=== PATIENT | male | born 1970 | race Caucasian/White ===

== ENCOUNTER 2016-02-23 15:46 | Emergency (ER) | payer SELFPAY ==
--- NOTE | 2016-02-23 16:40 | DIAGNOSTIC IMAGING REPORT ---
PROCEDURE: XR RIBS UNILAT W/PA CHEST-RT INDICATION: TRAUMA/INJURY TECHNIQUE: Two views of the right ribs with single PA view chest. COMPARISON: None. FINDINGS: RIGHT RIBS: Fracture of the right seventh rib posteriorly No other suspicious rib lesions. CHEST: Normal cardiomediastinal contour. Clear lungs without pleural effusion, pneumothorax, or contusion. The other visible osseous structures are intact. IMPRESSION: 1. Fracture of the right seventh rib posteriorly 2. Chest otherwise normal
--- NOTE | 2016-02-23 17:42 | ED NURSING NOTES ---
Clinical Report - Nurses [facility] [address] [place] [address] 02/23/2016 15:47 [id number] Triage time 16:03 Feb 23 2016. Acuity: LEVEL 4. Chief Complaint: (Right Rib Pain). Alert. No acute distress. MITZY COMA SCORE: [place] Coma Scale: 15- eyes open spontaneously (4); best verbal response- oriented x 4 (5); best motor response- obeys commands (6). --16:14 Jia Trujillo R.N. 16:03 02/23/16. BP: 188/128. HR: 92. RR: 18. O2 saturation: 98%. --16:14 Jia Trujillo R.N. Weight: 108.8 kg stated. Height/Length: 72 inches Per Patient. BMI: 32.6. --16:02 Jia Trujillo R.N. Medications Ibuprofen Oral, as needed. --16:10 Jia Trujillo R.N. Medication/allergy information source: the patient. --16:14 Jia Trujillo R.N. Allergies No Known Drug Allergy. --16:08 Jia Trujillo R.N. History Arrived by private vehicle. Historian: patient. Accompanied by family. Primary physician (none). ( Pt states about a month ago he had coughing episode and felt something "pop" on his right side of rib cage area. Had some pain, concerned and went to [facility] / for a work up. Pt states all xrays were normal but felt his concern was dismissed and still having pain and tightness now in chest, off to the right side. "Dull Ache".). Onset. (1 month ago). 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 PAST MEDICAL HX: Immunizations: up-to-date. SURGERY HX: No history of previous surgery. SOCIAL HX: Heavy tobacco smoker (cigarette)- 1 pack per day. Occasional alcohol use. FALL RISK ASSESSMENT: Fall risk assessment completed. No fall risk identified. NUTRITIONAL RISK ASSESSMENT: The nutritional risk assessment revealed no deficiencies. FUNCTIONAL ASSESSMENT: Functional assessment: no impairments noted. LEARNING NEEDS ASSESSMENT: The learning needs assessment revealed no barriers. SKIN INTEGRITY ASSESSMENT: Skin integrity risk assessment completed. No skin integrity risk identified. --16:14 Jia Trujillo R.N. Interventions ID band on patient. To room. --16:14 Jia Trujillo R.N. PHYSICAL ASSESSMENT Ambulatory to room. GENERAL / NEURO / PSYCH: Appears in no acute distress. RESPIRATORY: Respirations not labored. Chest nontender. Breath sounds within normal limits. CVS: Capillary refill less than 2 seconds. SKIN: Skin is warm and dry. --16:15 Jia Trujillo R.N. NURSING PROGRESS NOTES ( seen in traige by the PA.). --16:15 Jia Trujillo R.N. Patient walked to radiology with tech. --16:15 Jia Trujillo R.N. Care transferred and report given (Adams, RN). --16:15 Jia Trujillo R.N. EKG time: (1636). EKG was ordered, performed by a tech and shown to the ED physician. --16:38 Doris Senior, ER Tech1. DISPOSITION / DISCHARGE Condition at departure: improved. The goals identified in the patient's plan of care were met. No learning barriers present. Reviewed medication(s) side effects, precautions, dosing and course information. The patient was discharged home and accompanied by spouse. He left the Emergency Department ambulatory and via private vehicle. Spouse driving. FALL RISK ASSESSMENT: Fall risk assessment completed. No fall risk identified. --17:49 Adams Sanchez R.N. 17:48 02/23/16. BP: 175/106. HR: 88. RR: 16. O2 saturation: 99%. Temp: 98.1 F (oral). Pain level now: 0/10. --17:49 Adams Sanchez R.N. Locked/Released at 02/23/2016 17:54 by Adams Sanchez R.N.
--- NOTE | 2016-02-23 17:42 | ED CLINICAL REPORT ---
Clinical Report - Physicians/Mid Levels [facility] [address] [address] 02/23/2016 15:47 [id number] Time Seen: 16:16 Feb 23 2016. Arrived- By private vehicle. Historian- patient. HISTORY OF PRESENT ILLNESS Chief Complaint: CHEST DISCOMFORT. 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 It is described as "pain" and well localized and it is described as located in the right chest area. (over the last month patient reports right-sided chest pain, worse with any movement, or breathing. Patient reports he was previously seen around February 16 at [facility], had a chest x-ray, and an injection, as well as some pain medications, however he did not feel his workup was complete, and thus her here. Patient does not have a primary care doctor. Denies any shortness of breath. Pain is really low at this time. He has had dry cough.). REVIEW OF SYSTEMS No cough, pedal edema, missed periods or abdominal pain. All systems otherwise negative, except as recorded above. SOCIAL HISTORY Smoker- current status unknown. Alcohol use. ADDITIONAL NOTES The nursing notes have been reviewed. PHYSICAL EXAM Vital Signs: 02/23/2016 16:03 BP: 188/128. HR: 92. RR: 18. O2 saturation: 98%. Appearance: Alert. ENT: Nose normal. Pharynx normal. Neck: Normal inspection. CVS: Normal heart rate and rhythm. Heart sounds normal. Pulses normal. Respiratory: No respiratory distress. Chest pain reproducible with palpation of the posterior chest wall and lateral ribs and with movement of the trunk and right arm. Breath sounds normal. No splinting. Abdomen: Soft and nontender. Bowel sounds normal. No abdominal tenderness. Skin: Skin warm. Normal skin color. Neuro: Oriented X 3. LABS, X-RAYS, AND EKG EKG: EKG time: (8116). No acute process. No acute ischemia. Rate: 86. Normal P waves. Normal TAMI. Incomplete RBBB. The study has been interpreted contemporaneously. The study has been independently viewed by me. The EKG appears to be a good tracing. Chest X-ray: (IMPRESSION: 1. Fracture of the right seventh rib posteriorly 2. Chest otherwise normal Electronically Final signed by:Jae Arceo MD 02/23/2016 4:43:51 PM). Laboratory Tests: CBC w Diff: (GENIA: 02/23/2016 17:07) ( MsgRcvd 02/23/2016 17:19) Final results Test Result Flag Units (Reference) WHITE BLOOD COUNT 9.9 K/uL (4.5-11.5) RED BLOOD COUNT 5.07 M/uL (4.50-5.90) HEMOGLOBIN 15.9 gm/dL (13.5-17.5) HEMATOCRIT 48.0 % (41.0-53.0) MEAN CELL VOLUME 95 fL (80-100) MEAN CORPUSCULAR HGB 31 pg (26-34) MEAN CORPUSCULAR HGB CONC 33 g/dL (31-37) RED CELL DISTRIBUTION WIDTH 13.1 % (11.6-14.8) PLATELET COUNT 321 K/uL (150-400) NEUTROPHIL % 57.8 % (50-75) LYMPH % 28.2 % (25-40) MONO % 8.5 % (3-14) EOSINOPHIL % 4.9 H % (0-4) BASOPHIL % 0.6 % (0-2) CHEM 13 PANEL: (GENIA: 02/23/2016 17:07) ( MsgRcvd 02/23/2016 17:40) Final results Test Result Flag Units (Reference) GLUCOSE 123 H mg/dL (70-110) BUN 11 mg/dL (7-18) CREATININE 0.9 mg/dL (0.6-1.3) Estimated GFR >60 mL/min Estimated GFR- >60 mL/min Note: Persistent reduction over 3 months in eGFR<60 mL/min/1.73 m2 defines CKD. Patients with eGFR values>=60 mL/min/1.73 m2 may also have CKD if evidence ofpersistent proteinuria. Additional information may be foundat www.kidney.org. SODIUM 139 mmol/L (136-145) POTASSIUM 4.2 mmol/L (3.5-5.1) CHLORIDE 104 mmol/L (98-107) CARBON DIOXIDE 31 mmol/L (21-32) CALCIUM 9.1 mg/dL (8.5-10.1) TOTAL PROTEIN 7.3 g/dL (6.4-8.2) ALBUMIN 3.6 g/dL (3.3-5.0) BILIRUBIN, TOTAL 0.3 mg/dL (0.0-1.0) ALKALINE PHOSPHATASE 86 U/L (46-116) AST (SGOT) 24 U/L (15-37) ALT (SGPT) 62 U/L (12-78) MAGNESIUM 1.9 mg/dL (1.8-2.4) CPK 230 U/L (24-260) TROPONIN I <0.05 ng/mL (0.00-1.5) TROPONIN REFERENCE RANGE:<0.1 NEGATIVE0.1-1.5 INDETERMINANT>1.5 POSITIVE . PROGRESS AND PROCEDURES Course of Care: ongoing symptoms for 1 month, pain associated with movement, movement of his extremities, with an associated underlying seventh right posterior rib fracture. Patient otherwise with unremarkable EKG, chest x-ray, otherwise stable, no underlying secondary infection process. Unable to urinate here, thus no UA in the meantime. 02/23/2016 17:48 BP: 175/106. HR: 88. RR: 16. O2 saturation: 99%. Temp: 98.1 F. Pain level now: 0/10. Patient is stable. Symptoms better. Patient/family counseled. Disposition: Discharged. CLINICAL IMPRESSION Single right rib fracture. Hypertension. INSTRUCTIONS Warnings: GENERAL WARNINGS: Return or contact your physician immediately if your condition worsens or changes unexpectedly, if not improving as expected, or if other problems arise. Prescription Medications: Ibuprofen 800 mg tablets: take 1 tablet orally every 8 hours for 5 days, as needed for pain. Dispense fifteen (15). No refill. Follow-up: Follow up with your doctor in three days. Follow-up with: Juan Berry MD, [facility], , [facility], [address] [place] [address] Follow up. Call for the next available appointment. (Electronically signed by Amy Aguirre P.A.-C 02/23/2016 17:56)
--- NOTE | 2016-02-23 17:42 | ED NURSING NOTES ---
Clinical Report - Nurses [facility] [address] [place] [address] 02/23/2016 15:47 [id number] TRI[facility] Triage time 16:03 Feb 23 2016. Acuity: LEVEL 4. Chief Complaint: (Right Rib Pain). Alert. No acute distress. MITZY COMA SCORE: [place] Coma Scale: 15- eyes open spontaneously (4); best verbal response- oriented x 4 (5); best motor response- obeys commands (6). --16:14 Jia Trujillo R.N. 16:03 02/23/16. BP: 188/128. HR: 92. RR: 18. O2 saturation: 98%. --16:14 Jia Trujillo R.N. Weight: 108.8 kg stated. Height/Length: 72 inches Per Patient. BMI: 32.6. --16:02 Jia Trujillo R.N. Medications Ibuprofen Oral, as needed. --16:10 Jia Trujillo R.N. Medication/allergy information source: the patient. --16:14 Jia Trujillo R.N. Allergies No Known Drug Allergy. --16:08 Jia Trujillo R.N. History Arrived by private vehicle. Historian: patient. Accompanied by family. Primary physician (none). ( Pt states about a month ago he had coughing episode and felt something "pop" on his right side of rib cage area. Had some pain, concerned and went to [facility] ER / for a work up. Pt states all xrays were normal but felt his concern was dismissed and still having pain and tightness now in chest, off to the right side. "Dull Ache".). Onset. (1 month ago). 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 PAST MEDICAL HX: Immunizations: up-to-date. SURGERY HX: No history of previous surgery. SOCIAL HX: Heavy tobacco smoker (cigarette)- 1 pack per day. Occasional alcohol use. FALL RISK ASSESSMENT: Fall risk assessment completed. No fall risk identified. NUTRITIONAL RISK ASSESSMENT: The nutritional risk assessment revealed no deficiencies. FUNCTIONAL ASSESSMENT: Functional assessment: no impairments noted. LEARNING NEEDS ASSESSMENT: The learning needs assessment revealed no barriers. SKIN INTEGRITY ASSESSMENT: Skin integrity risk assessment completed. No skin integrity risk identified. --16:14 Jia Trujillo R.N. Interventions ID band on patient. To room. --16:14 Jia Trujillo R.N. PHYSICAL ASSESSMENT Ambulatory to room. GENERAL / NEURO / PSYCH: Appears in no acute distress. RESPIRATORY: Respirations not labored. Chest nontender. Breath sounds within normal limits. CVS: Capillary refill less than 2 seconds. SKIN: Skin is warm and dry. --16:15 Jia Trujillo R.N. NURSING PROGRESS NOTES ( seen in traige by the PA.). --16:15 Jia Trujillo R.N. Patient walked to radiology with tech. --16:15 Jia Trujillo R.N. Care transferred and report given (Adams, RN). --16:15 Jia Trujillo R.N. EKG time: (1636). EKG was ordered, performed by a tech and shown to the ED physician. --16:38 Doris Senior, ER Tech1. DISPOSITION / DISCHARGE Condition at departure: improved. The goals identified in the patient's plan of care were met. No learning barriers present. Reviewed medication(s) side effects, precautions, dosing and course information. The patient was discharged home and accompanied by spouse. He left the Emergency Department ambulatory and via private vehicle. Spouse driving. FALL RISK ASSESSMENT: Fall risk assessment completed. No fall risk identified. --17:49 Adams Sanchez R.N. 17:48 02/23/16. BP: 175/106. HR: 88. RR: 16. O2 saturation: 99%. Temp: 98.1 F (oral). Pain level now: 0/10. --17:49 Adams Sanchez R.N. Locked/Released at 02/23/2016 17:54 by Adams Sanchez R.N.
--- NOTE | 2016-02-23 17:42 | ED CLINICAL REPORT ---
Clinical Report - Physicians/Mid Levels [facility] [address] [place] [address] 02/23/2016 15:47 [id number] Time Seen: 16:16 Feb 23 2016. Arrived- By private vehicle. Historian- patient. HISTORY OF PRESENT ILLNESS Chief Complaint: CHEST DISCOMFORT. 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 It is described as "pain" and well localized and it is described as located in the right chest area. (over the last month patient reports right-sided chest pain, worse with any movement, or breathing. Patient reports he was previously seen around February 16 at [facility], had a chest x-ray, and an injection, as well as some pain medications, however he did not feel his workup was complete, and thus her here. Patient does not have a primary care doctor. Denies any shortness of breath. Pain is really low at this time. He has had dry cough.). REVIEW OF SYSTEMS No cough, pedal edema, missed periods or abdominal pain. All systems otherwise negative, except as recorded above. SOCIAL HISTORY Smoker- current status unknown. Alcohol use. ADDITIONAL NOTES The nursing notes have been reviewed. PHYSICAL EXAM Vital Signs: 02/23/2016 16:03 BP: 188/128. HR: 92. RR: 18. O2 saturation: 98%. Appearance: Alert. ENT: Nose normal. Pharynx normal. Neck: Normal inspection. CVS: Normal heart rate and rhythm. Heart sounds normal. Pulses normal. Respiratory: No respiratory distress. Chest pain reproducible with palpation of the posterior chest wall and lateral ribs and with movement of the trunk and right arm. Breath sounds normal. No splinting. Abdomen: Soft and nontender. Bowel sounds normal. No abdominal tenderness. Skin: Skin warm. Normal skin color. Neuro: Oriented X 3. LABS, X-RAYS, AND EKG EKG: EKG time: (4766). No acute process. No acute ischemia. Rate: 86. Normal P waves. Normal TAMI. Incomplete RBBB. The study has been interpreted contemporaneously. The study has been independently viewed by me. The EKG appears to be a good tracing. Chest X-ray: (IMPRESSION: 1. Fracture of the right seventh rib posteriorly 2. Chest otherwise normal Electronically Final signed by:Jae Arceo MD 02/23/2016 4:43:51 PM). Laboratory Tests: CBC w Diff: (GENIA: 02/23/2016 17:07) ( MsgRcvd 02/23/2016 17:19) Final results Test Result Flag Units (Reference) WHITE BLOOD COUNT 9.9 K/uL (4.5-11.5) RED BLOOD COUNT 5.07 M/uL (4.50-5.90) HEMOGLOBIN 15.9 gm/dL (13.5-17.5) HEMATOCRIT 48.0 % (41.0-53.0) MEAN CELL VOLUME 95 fL (80-100) MEAN CORPUSCULAR HGB 31 pg (26-34) MEAN CORPUSCULAR HGB CONC 33 g/dL (31-37) RED CELL DISTRIBUTION WIDTH 13.1 % (11.6-14.8) PLATELET COUNT 321 K/uL (150-400) NEUTROPHIL % 57.8 % (50-75) LYMPH % 28.2 % (25-40) MONO % 8.5 % (3-14) EOSINOPHIL % 4.9 H % (0-4) BASOPHIL % 0.6 % (0-2) CHEM 13 PANEL: (GENIA: 02/23/2016 17:07) ( MsgRcvd 02/23/2016 17:40) Final results Test Result Flag Units (Reference) GLUCOSE 123 H mg/dL (70-110) BUN 11 mg/dL (7-18) CREATININE 0.9 mg/dL (0.6-1.3) Estimated GFR >60 mL/min Estimated GFR- >60 mL/min Note: Persistent reduction over 3 months in eGFR<60 mL/min/1.73 m2 defines CKD. Patients with eGFR values>=60 mL/min/1.73 m2 may also have CKD if evidence ofpersistent proteinuria. Additional information may be foundat www.kidney.org. SODIUM 139 mmol/L (136-145) POTASSIUM 4.2 mmol/L (3.5-5.1) CHLORIDE 104 mmol/L (98-107) CARBON DIOXIDE 31 mmol/L (21-32) CALCIUM 9.1 mg/dL (8.5-10.1) TOTAL PROTEIN 7.3 g/dL (6.4-8.2) ALBUMIN 3.6 g/dL (3.3-5.0) BILIRUBIN, TOTAL 0.3 mg/dL (0.0-1.0) ALKALINE PHOSPHATASE 86 U/L (46-116) AST (SGOT) 24 U/L (15-37) ALT (SGPT) 62 U/L (12-78) MAGNESIUM 1.9 mg/dL (1.8-2.4) CPK 230 U/L (24-260) TROPONIN I <0.05 ng/mL (0.00-1.5) TROPONIN REFERENCE RANGE:<0.1 NEGATIVE0.1-1.5 INDETERMINANT>1.5 POSITIVE . PROGRESS AND PROCEDURES Course of Care: ongoing symptoms for 1 month, pain associated with movement, movement of his extremities, with an associated underlying seventh right posterior rib fracture. Patient otherwise with unremarkable EKG, chest x-ray, otherwise stable, no underlying secondary infection process. Unable to urinate here, thus no UA in the meantime. 02/23/2016 17:48 BP: 175/106. HR: 88. RR: 16. O2 saturation: 99%. Temp: 98.1 F. Pain level now: 0/10. Patient is stable. Symptoms better. Patient/family counseled. Disposition: Discharged. CLINICAL IMPRESSION Single right rib fracture. Hypertension. INSTRUCTIONS Warnings: GENERAL WARNINGS: Return or contact your physician immediately if your condition worsens or changes unexpectedly, if not improving as expected, or if other problems arise. Prescription Medications: Ibuprofen 800 mg tablets: take 1 tablet orally every 8 hours for 5 days, as needed for pain. Dispense fifteen (15). No refill. Follow-up: Follow up with your doctor in three days. Follow-up with: Juan Berry MD, [facility], , [facility], [address] [place] [address] Follow up. Call for the next available appointment. (Electronically signed by Amy Aguirre P.A.-C 02/23/2016 17:56)
--- NOTE | 2016-02-23 17:42 | ED ORDER SUMMARY ---
..... Patient: NISREEN BECKHAM OrderSheet [facility] VisitID: [id number] [place] [address] 45y, M Registration Date/Time: 02/23/2016 ORDER SHEET Weight: 108.8 kg (stated) Allergies: No Known Drug Allergy GENERAL ORDERS: Ribs Unilat w PA Chest Right Urgent (16:10 02/23/2016 EKoroleva P.A.-C) (Ack 16:17 NHouse ER Tech1) (17:25 MCampbell) Cardiac Panel Stat (16:11 02/23/2016 EKoroleva P.A.-C) (Ack 16:17 NHouse ER Tech1) (17:13 NHouse ER Tech1) EKG - ER Stat (16:11 02/23/2016 EKoroleva P.A.-C) (16:31 LNations ER Tech1) UA-Culture if indicated Urgent (16:26 02/23/2016 EKoroleva P.A.-C) (Ack 17:08 NHouse ER Tech1) (17:54 Nuris Mg) MEDICATION ORDERS: IV FLUIDS: ORDER SHEET NOTES: [Electronically signed by Adams Sanchez R.N. (17:54 02/23/2016)] [Electronically signed by Amy Aguirre P.A.-C (17:56 02/23/2016)] [Electronically locked/signed by Adams Sanchez R.N. (17:54 02/23/2016)]
--- NOTE | 2016-02-23 17:42 | ED ORDER SUMMARY ---
..... Patient: NISREEN BECKHAM OrderSheet [facility] VisitID: [id number] [place] [address] 45y, M Registration Date/Time: 02/23/2016 ORDER SHEET Weight: 108.8 kg (stated) Allergies: No Known Drug Allergy GENERAL ORDERS: Ribs Unilat w PA Chest Right Urgent (16:10 02/23/2016 EKoroleva P.A.-C) (Ack 16:17 NHouse ER Tech1) (17:25 MCampbell) Cardiac Panel Stat (16:11 02/23/2016 EKoroleva P.A.-C) (Ack 16:17 NHouse ER Tech1) (17:13 NHouse ER Tech1) EKG - ER Stat (16:11 02/23/2016 EKoroleva P.A.-C) (16:31 LNations ER Tech1) UA-Culture if indicated Urgent (16:26 02/23/2016 EKoroleva P.A.-C) (Ack 17:08 NHouse ER Tech1) (17:54 Nuris Mg) MEDICATION ORDERS: IV FLUIDS: ORDER SHEET NOTES: [Electronically signed by Adams Sanchez R.N. (17:54 02/23/2016)] [Electronically signed by Amy Aguirre P.A.-C (17:56 02/23/2016)] [Electronically locked/signed by Adams Sanchez R.N. (17:54 02/23/2016)]
--- NOTE | 2016-02-23 17:56 | ED DISCHARGE INSTRUCTIONS ---
Patient: NISREEN BECKHAM General Instructions [facility] VisitID: [id number] [place] [address] 45y, M Registration Date/Time: 02/23/2016 Single right rib fracture. Hypertension. INSTRUCTIONS Warnings: GENERAL WARNINGS: Return or contact your physician immediately if your condition worsens or changes unexpectedly, if not improving as expected, or if other problems arise. Prescription Medications: Ibuprofen 800 mg tablets: take 1 tablet orally every 8 hours for 5 days, as needed for pain. Dispense fifteen (15). No refill. Follow-up: Follow up with your doctor in three days. Follow-up with: Juan Berry MD, [facility], , [facility], [address] [place] [address] Follow up. Call for the next available appointment. ADDITIONAL INFORMATION Rib Fracture You have a fracture (break) of one or more ribs. Rib fractures do not require a cast like other bones. They will heal by themselves in about 4-6 weeks. The first 3-4 weeks will be the most painful because deep breathing, coughing or changing position from sitting to lying down, may cause the broken ends to move slightly. Home Care: Rest. You should not be doing any heavy lifting or strenuous exertion until the pain goes away. Because it hurts to breathe when you have a broken rib, there is risk of getting pneumonia from poor airflow through your lungs. To prevent this: Take four very deep breaths at least four times a day (exhale through pursed lips as if you are blowing up a balloon). If an "incentive spirometer" (breathing exercise device) was given to you, use it at least four times a day, or as directed. Apply an ice pack (ice cubes in a plastic bag, wrapped in a towel) over the injured area for 20 minutes every 1-2 hours the first day. Continue with ice packs 3-4 times a day for the next two days, then as needed for the relief of pain and swelling. You may use acetaminophen (Tylenol) or ibuprofen (Motrin, Advil) to control pain, unless another pain medicine was prescribed. [NOTE: If you have chronic liver or kidney disease or ever had a stomach ulcer or GI bleeding, talk with your doctor before using these medicines.] If your pain is not controlled by the treatment given, contact your doctor. Sometimes a stronger pain medicine may be needed. A nerve block (numbing the nerve between the ribs) can be performed in case of severe pain. Follow Up with your doctor during the next week, or as advised. Rarely, a broken rib will cause complications within the first few days that may not be evident during your initial exam (such as, collapsed lung, bleeding around the lung or into the abdomen, or pneumonia). Therefore, watch for the signs below. [NOTE: If x-rays were taken, they will be reviewed by a radiologist. You will be notified of any new findings that may affect your care.] Get Prompt Medical Attention if any of the following occur: Shortness of breath Increasing chest pain with breathing Dizziness, weakness or fainting New or worsening abdominal pain Fever of 100.4F (38C) or higher, or as directed by your healthcare provider Congested cough You have been given the following additional information: Fracture, Rib (Electronically signed by Amy Aguirre P.A.-C 02/23/2016 17:56)
--- NOTE | 2016-02-23 17:56 | ED MAR SUMMARY ---
..... Medication Administration Record [facility] [address] [place], [place] [id number] Patient: NISREEN BECKHAM Visit ID: [id number] 45y, M Weight: 108.8 kg Height/Length: 72 in BMI: 32.6 ALLERGIES: No Known Drug Allergy
--- NOTE | 2016-02-23 17:56 | ED MED RECONCILIATION SUMMARY ---
Patient: NISREEN BECKHAM Medication Reconciliation Report [facility] VisitID: [id number] [address] [place] [address] 45y, M Registration Date/Time: 02/23/2016 Weight: 108.8 kg Height/Length: 72 in. BMI: 32.6 ALLERGIES: No Known Drug Allergy The patient's Home Medications are listed below: THE FOLLOWING MEDICATIONS NEED TO BE RECONCILED: Ibuprofen Oral The source(s) of the original Home Medication information: patient The following Medications were given to the patient in the Emergency Department: None. The following Medications were prescribed to the patient: Ibuprofen 800 mg tablets: take 1 tablet orally every 8 hours for 5 days, as needed for pain. Dispense fifteen (15). No refill. -- Amy Aguirre P.A.-C
--- NOTE | 2016-02-23 17:56 | ED MAR SUMMARY ---
..... Medication Administration Record [facility] [address] [place] [place] [id number] Patient: NISREEN BECKHAM Visit ID: [id number] 45y, M Weight: 108.8 kg Height/Length: 72 in BMI: 32.6 ALLERGIES: No Known Drug Allergy
--- NOTE | 2016-02-23 17:56 | ED DISCHARGE INSTRUCTIONS ---
Patient: NISREEN BECKHAM General Instructions [facility] VisitID: [id number] [place] [address] 45y, M Registration Date/Time: 02/23/2016 Single right rib fracture. Hypertension. INSTRUCTIONS Warnings: GENERAL WARNINGS: Return or contact your physician immediately if your condition worsens or changes unexpectedly, if not improving as expected, or if other problems arise. Prescription Medications: Ibuprofen 800 mg tablets: take 1 tablet orally every 8 hours for 5 days, as needed for pain. Dispense fifteen (15). No refill. Follow-up: Follow up with your doctor in three days. Follow-up with: Juan Berry MD, [facility], , [facility], [address] [place] [address] Follow up. Call for the next available appointment. ADDITIONAL INFORMATION Rib Fracture You have a fracture (break) of one or more ribs. Rib fractures do not require a cast like other bones. They will heal by themselves in about 4-6 weeks. The first 3-4 weeks will be the most painful because deep breathing, coughing or changing position from sitting to lying down, may cause the broken ends to move slightly. Home Care: Rest. You should not be doing any heavy lifting or strenuous exertion until the pain goes away. Because it hurts to breathe when you have a broken rib, there is risk of getting pneumonia from poor airflow through your lungs. To prevent this: Take four very deep breaths at least four times a day (exhale through pursed lips as if you are blowing up a balloon). If an "incentive spirometer" (breathing exercise device) was given to you, use it at least four times a day, or as directed. Apply an ice pack (ice cubes in a plastic bag, wrapped in a towel) over the injured area for 20 minutes every 1-2 hours the first day. Continue with ice packs 3-4 times a day for the next two days, then as needed for the relief of pain and swelling. You may use acetaminophen (Tylenol) or ibuprofen (Motrin, Advil) to control pain, unless another pain medicine was prescribed. [NOTE: If you have chronic liver or kidney disease or ever had a stomach ulcer or GI bleeding, talk with your doctor before using these medicines.] If your pain is not controlled by the treatment given, contact your doctor. Sometimes a stronger pain medicine may be needed. A nerve block (numbing the nerve between the ribs) can be performed in case of severe pain. Follow Up with your doctor during the next week, or as advised. Rarely, a broken rib will cause complications within the first few days that may not be evident during your initial exam (such as, collapsed lung, bleeding around the lung or into the abdomen, or pneumonia). Therefore, watch for the signs below. [NOTE: If x-rays were taken, they will be reviewed by a radiologist. You will be notified of any new findings that may affect your care.] Get Prompt Medical Attention if any of the following occur: Shortness of breath Increasing chest pain with breathing Dizziness, weakness or fainting New or worsening abdominal pain Fever of 100.4F (38C) or higher, or as directed by your healthcare provider Congested cough You have been given the following additional information: Fracture, Rib (Electronically signed by Amy Aguirre P.A.-C 02/23/2016 17:56)
--- NOTE | 2016-02-23 17:56 | ED MED RECONCILIATION SUMMARY ---
Patient: NISREEN BECKHAM Medication Reconciliation Report [facility] VisitID: [id number] [address] [place] [address] 45y, M Registration Date/Time: 02/23/2016 Weight: 108.8 kg Height/Length: 72 in. BMI: 32.6 ALLERGIES: No Known Drug Allergy The patient's Home Medications are listed below: THE FOLLOWING MEDICATIONS NEED TO BE RECONCILED: Ibuprofen Oral The source(s) of the original Home Medication information: patient The following Medications were given to the patient in the Emergency Department: None. The following Medications were prescribed to the patient: Ibuprofen 800 mg tablets: take 1 tablet orally every 8 hours for 5 days, as needed for pain. Dispense fifteen (15). No refill. -- Amy Aguirre P.A.-C
== END 2016-02-23 17:50 | disposition home or self-care (01) ==
LOC: ED SRH 15:46
DX: S22.31XA Fracture of one rib, right side, initial encounter for closed fracture (principal); I10 Essential (primary) hypertension; X58.XXXA Exposure to other specified factors, initial encounter; F17.210 Nicotine dependence, cigarettes, uncomplicated